=== PATIENT | male | born 1940 | race Caucasian/White ===

== ENCOUNTER 2021-09-10 13:26 | Emergency (ER) | payer MEDICARE ==
[~2021-09-10] VITALS: Ht 185.4 cm; Wt 92.3 kg
[~2021-09-10 13:26] MED LIST: ALD25T PO; ALLO100T PO; ATOR20TA PO; CARV20CP PO; CELE-193 PO; COLC0.6T66 PO; COU1T PO; COU4T PO; HYDR-3717 PO; LISI-222 PO
[2021-09-10 17:44] VITALS: BP 131/87
== END 2021-09-10 17:46 | disposition home or self-care (01) ==
LOC: ER 13:27
DX: R31.9 Hematuria, unspecified (principal); I48.91 Unspecified atrial fibrillation; E78.00 Pure hypercholesterolemia, unspecified; I10 Essential (primary) hypertension; M19.90 Unspecified osteoarthritis, unspecified site; Z98.890 Other specified postprocedural states; Z72.89 Other problems related to lifestyle; Z88.0 Allergy status to penicillin; Z79.01 Long term (current) use of anticoagulants; Z79.899 Other long term (current) drug therapy; Z96.0 Presence of urogenital implants
CPT/HCPCS: 99281

== ENCOUNTER 2021-09-28 11:55 | Emergency (ER) | payer MEDICARE ==
[~2021-09-28] VITALS: Ht 185.4 cm; Wt 90.9 kg
[2021-09-28 12:35] LABS: BASOPHILS # (AUTO) 0.1 X10'3 (0-0.2); EOSINOPHILS # (AUTO) 0.7 X10'3 (0-0.9); EOSINOPHILS % (AUTO) 12.5 % (0-6); HEMATOCRIT 23.6 % (42.0-52.0); HEMOGLOBIN 7.3 g/dl (14.0-17.9); LYMPHOCYTES # (AUTO) 0.8 X10'3 (1.1-4.8); LYMPHOCYTES % (AUTO) 14.8 % (21-51); MEAN CORPUSCULAR HGB CONC 30.9 g/dL (33.0-36.5); MEAN CORPUSCULAR VOLUME 74.3 FL (78-98); MEAN PLATELET VOLUME 7.1 FL (7.4-10.4); MONOCYTES # (AUTO) 0.5 X10'3 (0-0.9); MONOCYTES % (AUTO) 9.9 % (2-12); NEUTROPHILS # (AUTO) 3.3 X10'3 (1.8-7.7); NEUTROPHILS % (AUTO) 61.8 % (42-75); PLATELET COUNT 266 X10'3 (140-440); RED BLOOD COUNT 3.18 X10'6 (4.70-6.10); RED CELL DISTRIBUTION WIDTH 17.8 % (11.5-14.5); WHITE BLOOD COUNT 5.3 X10'3 (4.5-11.0)
[2021-09-28 12:51] LABS: ALANINE AMINOTRANSFERASE 22 U/L (12-78); ALBUMIN 3.3 G/DL (3.4-5.0); ALBUMIN/GLOBULIN RATIO 1.1 (1.1-1.5); ALKALINE PHOSPHATASE 55 IU/L (46-116); ANION GAP 8 (8-16); ASPARTATE AMINO TRANSFERASE 18 U/L (10-37); BILIRUBIN,TOTAL 0.5 MG/DL (0.1-1.0); BLOOD UREA NITROGEN 23 MG/DL (7-18); BUN/CREATININE RATIO 18.7 (5.4-32.0); CALCIUM 9.1 MG/DL (8.5-10.1); CHLORIDE 106 MMOL/L (99-107); CREATININE 1.23 MG/DL (0.60-1.10); GLUCOSE 115 MG/DL (70-104); POTASSIUM 5.2 MMOL/L (3.5-5.1); SODIUM 143 MMOL/L (135-145); TOTAL CARBON DIOXIDE 29.4 MMOL/L (24-32); TOTAL PROTEIN 6.2 G/DL (6.4-8.2); eGFR 57 ML/MIN
[2021-09-28 15:53] LABS: OCCULT BLOOD STOOL NEGATIVE (Neg)
[2021-09-28 16:40] VITALS: BP 128/61
[2021-09-28 16:55] VITALS: BP 131/74
--- NOTE | 2021-09-28 16:56 | NUR ---
no reaction from bt. Call light within reach.
--- NOTE | 2021-09-28 17:21 | NUR ---
DENIES COMPLAINTA.CALL OLIGHT WITHIN REACH.
[2021-09-28 17:51] VITALS: BP 134/69
[2021-09-28 18:42] VITALS: BP 112/88
== END 2021-09-28 18:52 | disposition home or self-care (01) ==
LOC: ER 11:56
DX: D64.9 Anemia, unspecified (principal); R06.02 Shortness of breath; R53.1 Weakness; I48.91 Unspecified atrial fibrillation; R31.9 Hematuria, unspecified; E78.00 Pure hypercholesterolemia, unspecified; I10 Essential (primary) hypertension; M19.90 Unspecified osteoarthritis, unspecified site; F17.200 Nicotine dependence, unspecified, uncomplicated; Z86.2 Personal history of diseases of the blood and blood-forming organs and certain disorders involving the immune mechanism; Z98.890 Other specified postprocedural states; Z72.89 Other problems related to lifestyle; Z88.0 Allergy status to penicillin; Z79.899 Other long term (current) drug therapy
CPT/HCPCS: 36415; 36430; 80053; 82272; 85025; 86885; 86900; 86901; 86920; 93005; 99285; P9016

== ENCOUNTER 2021-10-17 10:36 | Emergency (ER) | payer MEDICARE ==
[~2021-10-17] VITALS: Ht 185.4 cm; Wt 88.6 kg
[2021-10-17 11:00] VITALS: BP 111/66
[2021-10-17] MEDS ORDERED: LIDOcaine 1% W/epiNEPHrine 1:100,000 20ml vial SQ ONE (11:25)
[2021-10-17] MEDS ORDERED: ibuprofen tablet 400 MG TABLET PO ONE (11:55)
[2021-10-17] MEDS ORDERED: bacitracin 15gm ointment TP ONE (11:55)
== END 2021-10-17 12:15 | disposition home or self-care (01) ==
LOC: ER 10:36
DX: S01.21XA Laceration without foreign body of nose, initial encounter (principal); S61.216A Laceration without foreign body of right little finger without damage to nail, initial encounter; I48.91 Unspecified atrial fibrillation; E78.00 Pure hypercholesterolemia, unspecified; I10 Essential (primary) hypertension; R31.9 Hematuria, unspecified; M19.90 Unspecified osteoarthritis, unspecified site; Z86.2 Personal history of diseases of the blood and blood-forming organs and certain disorders involving the immune mechanism; Z98.890 Other specified postprocedural states; Z72.89 Other problems related to lifestyle; Z88.0 Allergy status to penicillin; Z79.899 Other long term (current) drug therapy; W01.0XXA Fall on same level from slipping, tripping and stumbling without subsequent striking against object, initial encounter; Y93.89 Activity, other specified; Y92.89 Other specified places as the place of occurrence of the external cause; Y99.8 Other external cause status
CPT/HCPCS: 12001; 12011; 99284

== ENCOUNTER 2021-12-09 14:54 | Inpatient (IN) | payer MEDICARE, BC ==
[~2021-12-09] VITALS: Ht 185.4 cm; Wt 95.5 kg
[~2021-12-09 14:54] MED LIST changes: +APIX5TAB3 PO; +LAN0.125T PO; +sevoflurane 250ml liquid IH ONE
[2021-12-09] MEDS ORDERED: normal saline 1000ML IV soln IV ONE (15:10)
[2021-12-09] MEDS ORDERED: CefTRIAXone 2gm/NS 100ml IVPB 100 ML IV ONE (15:10)
[2021-12-09] MEDS ORDERED: vancomycin/NS 1 GM ADD-VANTAGE 250 ML IV ONE ×2 (15:10→20:15)
[2021-12-09 15:45] LABS: BASOPHILS % (AUTO) 0.1 % (0-1); EOSINOPHILS # (AUTO) 0.2 X10'3 (0-0.9); EOSINOPHILS % (AUTO) 2.9 % (0-6); HEMATOCRIT 30.4 % (42.0-52.0); HEMOGLOBIN 9.8 g/dl (14.0-17.9); LYMPHOCYTES # (AUTO) 0.5 X10'3 (1.1-4.8); LYMPHOCYTES % (AUTO) 5.8 % (21-51); MEAN CORPUSCULAR HEMOGLOBIN 25.4 PG (27.0-31.0); MEAN CORPUSCULAR HGB CONC 32.3 g/dL (33.0-36.5); MEAN CORPUSCULAR VOLUME 78.6 FL (78-98); MEAN PLATELET VOLUME 7.2 FL (7.4-10.4); MONOCYTES # (AUTO) 0.7 X10'3 (0-0.9); MONOCYTES % (AUTO) 9.4 % (2-12); NEUTROPHILS # (AUTO) 6.4 X10'3 (1.8-7.7); NEUTROPHILS % (AUTO) 81.8 % (42-75); PLATELET COUNT 352 X10'3 (140-440); RED BLOOD COUNT 3.87 X10'6 (4.70-6.10); RED CELL DISTRIBUTION WIDTH 20.7 % (11.5-14.5); WHITE BLOOD COUNT 7.8 X10'3 (4.5-11.0)
[2021-12-09 16:00] LABS: ALANINE AMINOTRANSFERASE 25 U/L (12-78); ALBUMIN 2.5 G/DL (3.4-5.0); ALBUMIN/GLOBULIN RATIO 0.6 (1.1-1.5); ALKALINE PHOSPHATASE 58 IU/L (46-116); ANION GAP 6 (8-16); ASPARTATE AMINO TRANSFERASE 28 U/L (10-37); BILIRUBIN,TOTAL 0.3 MG/DL (0.1-1.0); BLOOD UREA NITROGEN 52 MG/DL (7-18); BUN/CREATININE RATIO 32.9 (5.4-32.0); CALCIUM 9.5 MG/DL (8.5-10.1); CHLORIDE 103 MMOL/L (99-107); CREATININE 1.58 MG/DL (0.60-1.10); GLUCOSE 155 MG/DL (70-104); POTASSIUM 4.9 MMOL/L (3.5-5.1); SODIUM 137 MMOL/L (135-145); TOTAL CARBON DIOXIDE 27.7 MMOL/L (24-32); TOTAL PROTEIN 6.7 G/DL (6.4-8.2); eGFR 42 ML/MIN
[2021-12-09 16:18] LABS: C-REACTIVE PROTEIN 27.38 MG/DL (0.0-0.5)
[2021-12-09 16:36] LABS: ANISOCYTOSIS 3+; MICROCYTOSIS 1+; PLATELET ESTIMATE NORMAL
[2021-12-09 16:37] LABS: BURR CELLS 1+; ELLIPTOCYTES 1+; HYPOCHROMASIA 1+
[2021-12-09] MEDS ORDERED: HYDROcodone/acetaminophen 5mg/325mg tablet PO ONE (17:45)
[2021-12-09] MEDS ORDERED: magnesium 2GM in 50ml NS 50 ML IV PRN (19:40)
[2021-12-09] MEDS ORDERED: magnesium 4gm in 100ml NS 100 ML IV PRN (19:40)
[2021-12-09] MEDS ORDERED: mag hydrox/Alum hydrox/simeth 30ml oral suspension PO PRN (19:40)
[2021-12-09] MEDS ORDERED: magnesium hydroxide 30ml (MOM) UD suspension PO PRN (19:40)
[2021-12-09] MEDS ORDERED: morphine 2 MG/ML inj. syringe IV PRN (19:40)
[2021-12-09] MEDS ORDERED: potassium CL 10mEq/100ml bag 100 ML IV PRN (19:40)
[2021-12-09] MEDS ORDERED: HYDROcodone/acetaminophen 5mg/325mg tablet PO PRN (19:40)
[2021-12-09] MEDS ORDERED: ondansetron/PF 4mg/2ml inj IV PRN (19:40)
[2021-12-09] MEDS ORDERED: POTASSIUM BICARB 20meq eff tab 20 MEQ TABLET.EFF PO PRN ×2 (19:40)
[2021-12-09] MEDS ORDERED: acetaminophen 325mg tablet PO PRN ×2 (19:40)
[2021-12-09] MEDS ORDERED: CARV25TA PO (19:56)
[2021-12-09] MEDS ORDERED: MAGN400C PO (19:59)
[2021-12-09] MEDS ORDERED: [UNRECOGNIZED DRUG - CODE] PO (19:59)
[2021-12-09] MEDS: docusate sod 100mg capsule PO SCH (20:00)
[2021-12-09] MEDS: K and/or MAG REPLACEMENT MC SCH (20:00)
[2021-12-09] MEDS: enoxaparin 40mg/0.4ml syringe SQ SCH (20:21)
[2021-12-09 22:00] VITALS: BP 141/80
[2021-12-09] MEDS: HYDROcodone/acetaminophen 10/325mg tab PO PRN (22:10)
[2021-12-10] VITALS (7 sets, daily range): BP systolic 114–133; BP diastolic 59–73
[2021-12-10] MEDS: HYDROcodone/acetaminophen 10/325mg tab PO PRN ×4 (02:34→18:36)
--- NOTE | 2021-12-10 06:09 | NUR ---
Problems reprioritized. Patient report given, questions answered & plan of care reviewed with hailey rn.
--- NOTE | 2021-12-10 06:20 | NUR ---
Patient in room PCU 3012. I have received report from VIOLA Owen and had the opportunity to ask questions and assume patient care.
[2021-12-10 06:55] LABS: BASOPHILS % (AUTO) 0.2 % (0-1); EOSINOPHILS # (AUTO) 0.2 X10'3 (0-0.9); EOSINOPHILS % (AUTO) 2.8 % (0-6); HEMATOCRIT 27.3 % (42.0-52.0); HEMOGLOBIN 8.9 g/dl (14.0-17.9); LYMPHOCYTES # (AUTO) 0.7 X10'3 (1.1-4.8); LYMPHOCYTES % (AUTO) 8.2 % (21-51); MEAN CORPUSCULAR HEMOGLOBIN 25.5 PG (27.0-31.0); MEAN CORPUSCULAR HGB CONC 32.5 g/dL (33.0-36.5); MEAN CORPUSCULAR VOLUME 78.5 FL (78-98); MEAN PLATELET VOLUME 7.2 FL (7.4-10.4); MONOCYTES % (AUTO) 12.3 % (2-12); NEUTROPHILS # (AUTO) 6.3 X10'3 (1.8-7.7); NEUTROPHILS % (AUTO) 76.5 % (42-75); PLATELET COUNT 325 X10'3 (140-440); RED BLOOD COUNT 3.48 X10'6 (4.70-6.10); RED CELL DISTRIBUTION WIDTH 20.7 % (11.5-14.5); WHITE BLOOD COUNT 8.2 X10'3 (4.5-11.0)
[2021-12-10 07:12] LABS: ALANINE AMINOTRANSFERASE 19 U/L (12-78); ALBUMIN/GLOBULIN RATIO 0.5 (1.1-1.5); ALKALINE PHOSPHATASE 49 IU/L (46-116); ANION GAP 3 (8-16); ASPARTATE AMINO TRANSFERASE 23 U/L (10-37); BILIRUBIN,TOTAL 0.3 MG/DL (0.1-1.0); BLOOD UREA NITROGEN 43 MG/DL (7-18); BUN/CREATININE RATIO 30.9 (5.4-32.0); CALCIUM 9.2 MG/DL (8.5-10.1); CHLORIDE 109 MMOL/L (99-107); CREATININE 1.39 MG/DL (0.60-1.10); GLUCOSE 109 MG/DL (70-104); SODIUM 140 MMOL/L (135-145); TOTAL CARBON DIOXIDE 27.7 MMOL/L (24-32); TOTAL PROTEIN 5.8 G/DL (6.4-8.2); eGFR 49 ML/MIN
[2021-12-10 07:33] LABS: ACANTHOCYTES 1+; ANISOCYTOSIS 3+; ELLIPTOCYTES 1+; MICROCYTOSIS 1+; PLATELET ESTIMATE NORMAL; POIKILOCYTOSIS 1+
[2021-12-10] MEDS: K and/or MAG REPLACEMENT MC SCH ×2 (08:00→19:08)
[2021-12-10] MEDS ORDERED: allopurinol 100mg tablet PO SCH (08:00)
[2021-12-10] MEDS: spironolactone 25 MG tablet PO SCH (08:14)
[2021-12-10] MEDS: digoxin 125mcg (0.125mg) tablet PO SCH (08:14)
[2021-12-10] MEDS: carVEDilol 12.5mg tablet PO SCH ×2 (08:15→20:48)
[2021-12-10] MEDS: lisinopril 5mg tablet PO SCH (08:15)
[2021-12-10] MEDS: docusate sod 100mg capsule PO SCH ×2 (08:15→20:48)
[2021-12-10] MEDS: morphine 2 MG/ML inj. syringe IV PRN ×2 (08:16→20:52)
--- NOTE | 2021-12-10 13:00 | NUR ---
Report given to VIOLA William
--- NOTE | 2021-12-10 13:08 | NUR ---
Received report from Aracelis ROD. Patient will come up to ortho via w/c
[2021-12-10] MEDS: cefTRIAXone 1g/NS 100ml IVPB 100 ML IV SCH (15:16)
--- NOTE | 2021-12-10 18:28 | NUR ---
Problems reprioritized. Patient report given, questions answered & plan of care reviewed with VIOLA Gastelum.
--- NOTE | 2021-12-10 18:49 | NUR ---
Patient in room ORTHO 4021. I have received report from ASIF ROD and had the opportunity to ask questions and assume patient care.
[2021-12-10] MEDS ORDERED: vancomycin/NS 1 GM ADD-VANTAGE 250 ML IV SCH (20:00)
[2021-12-10] MEDS: atorvastatin 20mg tablet PO SCH (20:48)
[2021-12-10] MEDS: enoxaparin 40mg/0.4ml syringe SQ SCH (20:49)
[2021-12-11] VITALS (18 sets, daily range): BP systolic 96–132; BP diastolic 46–70
[2021-12-11] MEDS: HYDROcodone/acetaminophen 10/325mg tab PO PRN ×3 (04:51→19:51)
--- NOTE | 2021-12-11 06:11 | NUR ---
Problems reprioritized. Patient report given, questions answered & plan of care reviewed with ASIF ROD.
[2021-12-11 06:37] LABS: BASOPHILS % (AUTO) 0.3 % (0-1); EOSINOPHILS # (AUTO) 0.1 X10'3 (0-0.9); EOSINOPHILS % (AUTO) 1.5 % (0-6); HEMATOCRIT 28.9 % (42.0-52.0); HEMOGLOBIN 9.3 g/dl (14.0-17.9); LYMPHOCYTES # (AUTO) 0.6 X10'3 (1.1-4.8); LYMPHOCYTES % (AUTO) 7.2 % (21-51); MEAN CORPUSCULAR HEMOGLOBIN 25.1 PG (27.0-31.0); MEAN CORPUSCULAR VOLUME 78.3 FL (78-98); MEAN PLATELET VOLUME 7.2 FL (7.4-10.4); MONOCYTES # (AUTO) 0.9 X10'3 (0-0.9); MONOCYTES % (AUTO) 10.6 % (2-12); NEUTROPHILS # (AUTO) 6.9 X10'3 (1.8-7.7); NEUTROPHILS % (AUTO) 80.4 % (42-75); PLATELET COUNT 385 X10'3 (140-440); RED BLOOD COUNT 3.69 X10'6 (4.70-6.10); RED CELL DISTRIBUTION WIDTH 20.3 % (11.5-14.5); WHITE BLOOD COUNT 8.6 X10'3 (4.5-11.0)
--- NOTE | 2021-12-11 06:40 | NUR ---
Patient in room ORTHO 4021. I have received report from VIOLA Gastelum and had the opportunity to ask questions and assume patient care.
[2021-12-11 06:47] LABS: ALANINE AMINOTRANSFERASE 22 U/L (12-78); ALBUMIN 2.1 G/DL (3.4-5.0); ALBUMIN/GLOBULIN RATIO 0.6 (1.1-1.5); ALKALINE PHOSPHATASE 48 IU/L (46-116); ANION GAP 5 (8-16); ASPARTATE AMINO TRANSFERASE 23 U/L (10-37); BILIRUBIN,TOTAL 0.3 MG/DL (0.1-1.0); BLOOD UREA NITROGEN 30 MG/DL (7-18); BUN/CREATININE RATIO 25.6 (5.4-32.0); CALCIUM 9.2 MG/DL (8.5-10.1); CHLORIDE 109 MMOL/L (99-107); CREATININE 1.17 MG/DL (0.60-1.10); GLUCOSE 106 MG/DL (70-104); MAGNESIUM 1.6 MG/DL (1.5-2.4); POTASSIUM 4.9 MMOL/L (3.5-5.1); SODIUM 143 MMOL/L (135-145); TOTAL CARBON DIOXIDE 29.5 MMOL/L (24-32); TOTAL PROTEIN 5.9 G/DL (6.4-8.2); eGFR 60 ML/MIN
[2021-12-11 06:48] LABS: APTT 37 SECONDS (22-32)
[2021-12-11 07:10] LABS: ANISOCYTOSIS 3+; ELLIPTOCYTES 1+; MICROCYTOSIS 1+; PLATELET ESTIMATE NORMAL; POIKILOCYTOSIS 1+
[2021-12-11] MEDS: K and/or MAG REPLACEMENT MC SCH ×2 (07:47→19:48)
[2021-12-11] MEDS: spironolactone 25 MG tablet PO SCH (07:54)
[2021-12-11] MEDS: digoxin 125mcg (0.125mg) tablet PO SCH (07:55)
[2021-12-11] MEDS: lisinopril 5mg tablet PO SCH (07:55)
[2021-12-11] MEDS: carVEDilol 12.5mg tablet PO SCH ×2 (07:56→19:51)
[2021-12-11] MEDS: allopurinol 100mg tablet PO SCH (08:00)
[2021-12-11] MEDS: docusate sod 100mg capsule PO SCH ×2 (08:00→19:51)
[2021-12-11] MEDS ORDERED: LIDOcaine 2% (20mg/ml) 5ml vial ONE (11:58)
[2021-12-11] MEDS ORDERED: propofol inj 20 ML IV ONE (11:58)
[2021-12-11] MEDS ORDERED: fentaNYL/PF 50MCG/1 ML 2ML syringe ONE (11:58)
[2021-12-11] MEDS ORDERED: rocuronium 10mg/ml inj IV ONE (11:58)
[2021-12-11] MEDS ORDERED: HYDROmorphone/PF 0.2 MG/ML SYRINGE IV PRN (12:55)
[2021-12-11] MEDS ORDERED: ondansetron/PF 4mg/2ml inj IV PRN ×2 (12:55→14:00)
[2021-12-11] MEDS ORDERED: ringers solution, lacted 1,000 ML IV SCH (12:55)
[2021-12-11] MEDS ORDERED: morphine 2 MG/ML inj. syringe IV PRN (12:55)
[2021-12-11] MEDS ORDERED: neostigmine methylsulfate 1 MG/ML 10ml vial ONE ×2 (13:13→13:15)
[2021-12-11] MEDS ORDERED: glycopyrrolate 0.2mg/ml inj ONE (13:13)
[2021-12-11] MEDS ORDERED: dexamethasone sod phosphate 4mg/ml inj. ONE (13:13)
[2021-12-11] MEDS ORDERED: ondansetron/PF 4mg/2ml inj ONE (13:13)
[2021-12-11] MEDS: HYDROmorphone/PF 0.2 MG/ML SYRINGE IV PRN ×2 (13:38→13:45)
[2021-12-11] MEDS ORDERED: diphenhydrAMINE 25mg capsule PO PRN ×2 (14:00)
[2021-12-11] MEDS ORDERED: acetaminophen 1,000mg/100ml IV 100 ML IV PRN (14:00)
[2021-12-11] MEDS ORDERED: bisacodyl 10mg suppository rectal RC PRN (14:00)
[2021-12-11] MEDS ORDERED: magnesium hydroxide 30ml (MOM) UD suspension PO PRN (14:00)
[2021-12-11] MEDS ORDERED: naloxone 0.4 mg/ml inj IV PRN (14:00)
[2021-12-11] MEDS ORDERED: acetaminophen 325mg tablet PO PRN (14:00)
--- NOTE | 2021-12-11 14:31 | NUR ---
Report called to receiving nurse. Transferred via SURGICAL BED WITH NO Belongings . Special Issues communicated to receiving nurse HAMILTON ROD.VSS. HAS MET ALL TRANSFER CRITERIA TO BE RETURNED TO THE FLOOR. VSS. PAIN CONTROLLED AT THIS TIME Addendum: 12/11/21 at 1437 by Jc Sol RN, RN Amended: Links added.
[2021-12-11] MEDS: cefTRIAXone 1g/NS 100ml IVPB 100 ML IV SCH (15:04)
--- NOTE | 2021-12-11 18:36 | NUR ---
Problems reprioritized. Patient report given, questions answered & plan of care reviewed with VIOLA Gastelum.
--- NOTE | 2021-12-11 18:51 | NUR ---
Patient in room ORTHO 4021. I have received report from ASIF ROD and had the opportunity to ask questions and assume patient care.
[2021-12-11] MEDS: sennosides 8.6mg tablet PO SCH (20:20)
[2021-12-11] MEDS: atorvastatin 20mg tablet PO SCH (20:20)
[2021-12-11] MEDS: morphine 2 MG/ML inj. syringe IV PRN (22:32)
[2021-12-12 02:00] VITALS: BP 105/61
[2021-12-12] MEDS: HYDROcodone/acetaminophen 10/325mg tab PO PRN ×4 (02:49→20:32)
[2021-12-12 06:00] VITALS: BP 101/58
[2021-12-12 06:15] LABS: BASOPHILS % (AUTO) 0.2 % (0-1); EOSINOPHILS % (AUTO) 0 % (0-6); HEMATOCRIT 29.5 % (42.0-52.0); HEMOGLOBIN 9.5 g/dl (14.0-17.9); LYMPHOCYTES # (AUTO) 0.5 X10'3 (1.1-4.8); LYMPHOCYTES % (AUTO) 4.5 % (21-51); MEAN CORPUSCULAR HEMOGLOBIN 25.6 PG (27.0-31.0); MEAN CORPUSCULAR HGB CONC 32.3 g/dL (33.0-36.5); MEAN CORPUSCULAR VOLUME 79.2 FL (78-98); MONOCYTES # (AUTO) 0.4 X10'3 (0-0.9); MONOCYTES % (AUTO) 3.7 % (2-12); NEUTROPHILS # (AUTO) 10.4 X10'3 (1.8-7.7); NEUTROPHILS % (AUTO) 91.6 % (42-75); PLATELET COUNT 419 X10'3 (140-440); RED BLOOD COUNT 3.73 X10'6 (4.70-6.10); WHITE BLOOD COUNT 11.4 X10'3 (4.5-11.0)
--- NOTE | 2021-12-12 06:34 | NUR ---
Problems reprioritized. Patient report given, questions answered & plan of care reviewed with GAGE ROD.
[2021-12-12 06:44] LABS: ALANINE AMINOTRANSFERASE 23 U/L (12-78); ALBUMIN/GLOBULIN RATIO 0.5 (1.1-1.5); ALKALINE PHOSPHATASE 46 IU/L (46-116); ANION GAP 5 (8-16); ASPARTATE AMINO TRANSFERASE 26 U/L (10-37); BILIRUBIN,TOTAL 0.2 MG/DL (0.1-1.0); BLOOD UREA NITROGEN 33 MG/DL (7-18); BUN/CREATININE RATIO 26.6 (5.4-32.0); CALCIUM 9.3 MG/DL (8.5-10.1); CHLORIDE 109 MMOL/L (99-107); CREATININE 1.24 MG/DL (0.60-1.10); GLUCOSE 130 MG/DL (70-104); MAGNESIUM 1.8 MG/DL (1.5-2.4); POTASSIUM 5.5 MMOL/L (3.5-5.1); SODIUM 142 MMOL/L (135-145); TOTAL CARBON DIOXIDE 27.6 MMOL/L (24-32); eGFR 56 ML/MIN
[2021-12-12 07:19] LABS: ANISOCYTOSIS 2+; MICROCYTOSIS 1+; PLATELET ESTIMATE NORMAL
[2021-12-12 07:20] LABS: ELLIPTOCYTES FEW; SCHISTOCYTES FEW
[2021-12-12] MEDS: K and/or MAG REPLACEMENT MC SCH ×2 (08:00→20:00)
[2021-12-12] MEDS: spironolactone 25 MG tablet PO SCH (08:00)
[2021-12-12] MEDS: carVEDilol 12.5mg tablet PO SCH ×2 (08:00→20:32)
[2021-12-12] MEDS: lisinopril 5mg tablet PO SCH (08:00)
[2021-12-12] MEDS: allopurinol 100mg tablet PO SCH (09:08)
[2021-12-12] MEDS: docusate sod 100mg capsule PO SCH ×2 (09:08→20:33)
[2021-12-12] MEDS: digoxin 125mcg (0.125mg) tablet PO SCH (09:09)
[2021-12-12 09:14] VITALS: BP 93/50
[2021-12-12 10:00] VITALS: BP 104/55
[2021-12-12] MEDS: cefTRIAXone 1g/NS 100ml IVPB 100 ML IV SCH (15:57)
[2021-12-12 18:00] VITALS: BP 105/59
[2021-12-12 20:30] VITALS: BP 129/69
[2021-12-12] MEDS: atorvastatin 20mg tablet PO SCH (20:32)
[2021-12-12] MEDS: sennosides 8.6mg tablet PO SCH (20:33)
[2021-12-13] MEDS: HYDROcodone/acetaminophen 10/325mg tab PO PRN ×4 (00:18→13:37)
[2021-12-13 06:00] VITALS: BP 115/58
[2021-12-13 06:06] LABS: BASOPHILS # (AUTO) 0.1 X10'3 (0-0.2); BASOPHILS % (AUTO) 0.6 % (0-1); EOSINOPHILS # (AUTO) 0.1 X10'3 (0-0.9); EOSINOPHILS % (AUTO) 0.9 % (0-6); HEMATOCRIT 28.4 % (42.0-52.0); HEMOGLOBIN 9.2 g/dl (14.0-17.9); LYMPHOCYTES # (AUTO) 0.9 X10'3 (1.1-4.8); LYMPHOCYTES % (AUTO) 8.3 % (21-51); MEAN CORPUSCULAR HEMOGLOBIN 25.5 PG (27.0-31.0); MEAN CORPUSCULAR HGB CONC 32.5 g/dL (33.0-36.5); MEAN CORPUSCULAR VOLUME 78.6 FL (78-98); MEAN PLATELET VOLUME 7.1 FL (7.4-10.4); MONOCYTES # (AUTO) 0.7 X10'3 (0-0.9); MONOCYTES % (AUTO) 6.9 % (2-12); NEUTROPHILS % (AUTO) 83.3 % (42-75); PLATELET COUNT 409 X10'3 (140-440); RED BLOOD COUNT 3.61 X10'6 (4.70-6.10); RED CELL DISTRIBUTION WIDTH 19.7 % (11.5-14.5); WHITE BLOOD COUNT 10.7 X10'3 (4.5-11.0)
--- NOTE | 2021-12-13 06:28 | NUR ---
Patient in room ORTHO 4021. I have received report from VIOLA Ruelas and had the opportunity to ask questions and assume patient care.
[2021-12-13 06:30] LABS: ALANINE AMINOTRANSFERASE 39 U/L (12-78); ALBUMIN/GLOBULIN RATIO 0.6 (1.1-1.5); ALKALINE PHOSPHATASE 44 IU/L (46-116); ANION GAP 6 (8-16); ASPARTATE AMINO TRANSFERASE 45 U/L (10-37); BILIRUBIN,TOTAL 0.2 MG/DL (0.1-1.0); BLOOD UREA NITROGEN 36 MG/DL (7-18); BUN/CREATININE RATIO 30.5 (5.4-32.0); CALCIUM 9.2 MG/DL (8.5-10.1); CHLORIDE 106 MMOL/L (99-107); CREATININE 1.18 MG/DL (0.60-1.10); GLUCOSE 95 MG/DL (70-104); MAGNESIUM 1.7 MG/DL (1.5-2.4); POTASSIUM 4.7 MMOL/L (3.5-5.1); SODIUM 139 MMOL/L (135-145); TOTAL CARBON DIOXIDE 26.9 MMOL/L (24-32); TOTAL PROTEIN 5.6 G/DL (6.4-8.2); eGFR 59 ML/MIN
[2021-12-13] MEDS: lisinopril 5mg tablet PO SCH (07:41)
[2021-12-13] MEDS: allopurinol 100mg tablet PO SCH (07:41)
[2021-12-13] MEDS: carVEDilol 12.5mg tablet PO SCH (07:44)
[2021-12-13] MEDS: docusate sod 100mg capsule PO SCH (07:44)
[2021-12-13] MEDS: spironolactone 25 MG tablet PO SCH (07:45)
[2021-12-13] MEDS: digoxin 125mcg (0.125mg) tablet PO SCH (07:48)
[2021-12-13] MEDS ORDERED: digoxin 125mcg (0.125mg) tablet PO SCH (07:50)
[2021-12-13] MEDS: K and/or MAG REPLACEMENT MC SCH (08:00)
[2021-12-13 10:00] VITALS: BP 116/54
[2021-12-13] MEDS ORDERED: Cipro PO (11:25)
--- NOTE | 2021-12-13 13:25 | NUR ---
Initial: Pt admit DX R shoulder septic arthritis, gout, HTN, afib, and anemia s/p R shoulder complete synovectomy this admit per EMR. Pt PO mostly ~75-100% avg heart healthy meals partially meeting estimated needs given DX. RD recommends Ensure High Protein BIDLD to assist meeting needs; notified. LBM 12/10 receiving routine colace and senna per EMR. Will monitor for further nutrition intervention needs this admit. Rec: 1. continue regular diet 2. Ensure High Protein BIDLD; pending MD verification in EMR 3. routine bowel care 4. weekly wts Addendum: 12/13/21 at [address] Amended: Links added.
[2021-12-13] MEDS ORDERED: LACT1CAP26 PO (13:32)
--- NOTE | 2021-12-13 16:00 | NUR ---
large right shoulder dressing soiled, removed to find 2 sutures each anterior and posterior shoulder. no new drainage. Bordered OPTI foam applied.
[2021-12-13] MEDS ORDERED: lactose-reduced food (Ensure High Protein) 237ml bottle PO SCH (17:30)
[2021-12-13] MEDS ORDERED: VANCOMYCIN LEVEL IV ONE (19:30)
--- NOTE | 2021-12-20 10:09 | NUR ---
Case Management DC follow up:Spoke with Patient"s via telephone.S/P: Patient Reports:Denies:Acute/continuous cp, emergent SOB, resp distress,N/V, weakness,syncope episodes, bladder pain, dysuria,hematuria, ,hematochezia,melena, unexplained bruising, bleeding, fever, chills.Verbalizes right shoulder is still painful; however , the swelling is receding .Denies numbness and tingling of fingers,Verbalizes incision with sutures intact, no s/s of infection, drainage, redness,or warmth to touch.Verbalizes understanding of s/s that warrant -/ER visit for further evaluation.Verbalizes understanding of new Rx:, why prescribed;continues/resumes current Rx as ordered.Verbalizes compliance with aftercare.Verbalizes follow up appointment with 12/20/21.Verbalizes lab draws, CBC,CMP,ESR,CRP, are scheduled for every Monday; with results sent to Dr.Kelly Flores.Verbalizes the nurses and staff were wonderful; however, the ER staff were not very professional spending a lot of their time socializing.Needs met, questions/concerns addressed at DC.No further questions/concerns regarding recent hospital stay and/or DC status at this time.
== END 2021-12-13 16:15 | disposition home health service (06) | DRG 510 ==
LOC: ER 14:56 → ED HOLD 19:52 → PCU 3S 21:15 → ORTHO 4S 12-10 15:07
PROVIDERS: ADMIT Family Medicine; ATTEND Internal Medicine
PROC: 0R9J3ZZ Drainage of Right Shoulder Joint, Percutaneous Approach (ICD-10-PCS; 2021-12-09)
PROC: 0RBJ4ZZ Excision of Right Shoulder Joint, Percutaneous Endoscopic Approach (ICD-10-PCS; principal; 2021-12-11 12:05)
DX: M00.9 Pyogenic arthritis, unspecified (principal); N17.0 Acute kidney failure with tubular necrosis; I48.20 Chronic atrial fibrillation, unspecified; I13.0 Hypertensive heart and chronic kidney disease with heart failure and stage 1 through stage 4 chronic kidney disease, or unspecified chronic kidney disease; M75.51 Bursitis of right shoulder; D64.9 Anemia, unspecified; N18.9 Chronic kidney disease, unspecified; B96.20 Unspecified Escherichia coli [E. coli] as the cause of diseases classified elsewhere; E78.00 Pure hypercholesterolemia, unspecified; E78.5 Hyperlipidemia, unspecified; Z20.822 Contact with and (suspected) exposure to COVID-19; I50.9 Heart failure, unspecified; M10.9 Gout, unspecified; R70.0 Elevated erythrocyte sedimentation rate; M75.101 Unspecified rotator cuff tear or rupture of right shoulder, not specified as traumatic; N40.0 Benign prostatic hyperplasia without lower urinary tract symptoms; Z79.01 Long term (current) use of anticoagulants; Z88.0 Allergy status to penicillin; Z79.899 Other long term (current) drug therapy
CPT/HCPCS: 10030; 36415; 80053; 82948; 83605; 83735; 84145; 85008; 85025; 85610; 85651; 85730; 86140; 86885; 86900; 86901; 87040; 87070; 87077; 87081; 87186; 89051; 89060; 93005; 96365; 96368; 99285; A4565; A4615; A4618; A6212; A6223; A6253; A6449; A7000; G0378; J0131; J0696; J1100; J1170; J1650; J2270; J2405; J2704; J2710; J3010; J3370; J3490; J7030

== ENCOUNTER 2023-09-20 07:00 | Emergency (ER) | payer MEDICARE, BC ==
[~2023-09-20] VITALS: Ht 185.4 cm; Wt 83.5 kg
[~2023-09-20 07:00] MED LIST changes: -CARV20CP PO; +CARV25TA PO; -CELE-193 PO; -COLC0.6T66 PO; -COU1T PO; -COU4T PO; -HYDR-3717 PO; +LACT1CAP26 PO; -LAN0.125T PO; +MAGN400C PO; +[UNRECOGNIZED DRUG - CODE] PO; -sevoflurane 250ml liquid IH ONE
[2023-09-20 07:03] VITALS: BP 147/91; PULSE 73; RESP 18; TEMP 97.8; O2SAT 98
== END 2023-09-20 09:30 | disposition left against medical advice (07) ==
LOC: ER 07:01
DX: H95.89 Other postprocedural complications and disorders of the ear and mastoid process, not elsewhere classified (principal); Z53.21 Procedure and treatment not carried out due to patient leaving prior to being seen by health care provider
CPT/HCPCS: 99281